=== PATIENT | female | born 1960 | race Caucasian/White ===

== ENCOUNTER → 2017-12-24 06:45 | Day surgery (SDC) | payer BC ==
--- NOTE | 2017-12-21 09:20 | HP ---
HISTORY AND PHYSICAL: DATE OF OFFICE VISIT: 12/18/17 DATE OF SURGERY: 12/24/17 SURGEON: Cyndi De León MD * (DICTATED BY WILIAN GILL) PROCEDURE: Left knee arthroplasty with partial meniscectomy, possible chondroplasty, possible synovectomy CHIEF COMPLAINT: Left knee pain. HISTORY OF PRESENT ILLNESS: Ms. Esposito is a 57-year-old female with complaints of left knee pain and MRI confirms a meniscal tear. She has elected to proceed with surgery. PAST MEDICAL HISTORY: History of breast cancer. PAST SURGICAL HISTORY: Lumpectomy. CURRENT MEDICATIONS: 1. Anastrozole. 2. Meloxicam 15 mg daily. 3. Vitamin D. 4. Motrin as needed. ALLERGIES: None. FAMILY HISTORY: Cancer and stroke. SOCIAL HISTORY: She is a 57-year-old female. She lives with her . She does not smoke, use drugs. Uses occasional alcohol. REVIEW OF SYSTEMS: A complete 14 point review of systems was reviewed with the patient and it was positive for asthma, nausea and vomiting after anesthesia. She denies history of DVT, PE, hepatitis, HIV, or anesthesia problems. PHYSICAL EXAMINATION GENERAL: She is well developed, well nourished, in no acute distress. VITAL SIGNS: She stands 64 inches tall. Weighs 200 pounds. Her blood pressure 124/82, heart rate is 71. HEENT: Normocephalic, atraumatic. NECK: Supple. No palpable lymph nodes. PULMONARY: Lungs are clear to auscultation bilaterally. CARDIO: Regular rate and rhythm. Strong S1 and S2. ABDOMEN: Soft, nontender, nondistended. NEUROLOGIC: She is alert and oriented x3. MUSCULOSKELETAL: Left lower extremity, skin is intact. There are no open wounds or abrasions. There is a mild joint effusion. She has some tenderness over the medial joint line. She has positive Gavin's. Positive Apley's. Negative Patricia's. 2+ dorsalis pedis pulses. Intact sensation. Her lower extremity muscle group strengths are intact at 5/5. ASSESSMENT AND PLAN: Mrs. Esposito is a 57-year-old female with complaints of left knee pain and MRI confirms a meniscal tear. She has elected to proceed with a left knee arthroscopy with partial meniscectomy, possible chondroplasty, possible synovectomy. The surgery is scheduled for 12/24/[address] De León. Dr. De León discussed the risks and benefits of the surgery at today's visit and all of her questions were answered. She will follow up with Dr. De León 2 weeks after the surgery. WILIAN GILL [id number]/[facility] #: [id number] JAYLEN
[~2017-12-24 06:45] MED LIST: Buffered Lidocaine 0.9% SYRIN* 5 ML/SYR SYRINGE INTRADERM ONE; Bupivacaine 0.5% SDV PF* 30ML VIAL ONE; Dexamethasone IV* 4 MG/ML 1 ML (4 MG) IV SLOW PU ONE; Dexamethasone IV* 4 MG/ML 1 ML (4 MG) ONE; DiMENhydriNATE IV* 50 MG/ML VIAL IV PUSH PRN; EPHEDrine (Pressors)* 50 MG/ML VIAL ONE; EPINEPHRINE 1 MG/ML 1 ML VIAL ONE; Famotidine IV* 10 MG/ML 2 ML (20 mg) IV ONE; Famotidine IV* 10 MG/ML 2 ML (20 mg) ONE; Ketorolac INJ* 30 MG/ML 1 ML VIAL ONE; Lidocaine 2% PF * 5 ML VIAL ONE; Midazolam* 1 MG/ML 5 ML VIAL (5 MG) ONE; Naloxone* 0.4 MG/ML 1 ML VIAL IV PRN; Ondansetron INJ* 2 MG/ML VIAL IV PRN; Ondansetron INJ* 2 MG/ML VIAL ONE; Phenylephrine INJ* 10 MG/ML 1 ML VIAL (10 MG) ONE; Propofol* 10 MG/ML 20 ML BTL IV PUSH ONE; Scopolamine 1.5 mg* PATCH TRANSDERM PRN; ceFAZolin 2 GM in NS PREMIX(*) 2 GM/100 ML BAG IVPB ONE; fentaNYL* 50 MCG/ML 2 ML VIAL (100 MCG VIAL) IV PRN; fentaNYL* 50 MCG/ML 5 ML VIAL (250 MCG VIAL) ONE; methylPREDNISolone ACETATE 80* 80 MG/ML 1 ML VIAL ONE; oxyCODONE/Acetamin 5/325 MG* TAB ONE; oxyCODONE/Acetamin 5/325 MG* TAB PO PRN
[2017-12-24 10:04] VITALS: BP 140/83
--- NOTE | 2017-12-25 07:44 | OP ---
DATE OF OPERATION: 12/24/17 - [facility] DATE OF : 64 ATTENDING SURGEON: Cyndi De León MD FILM PROCESSING SUPERVISOR: WILIAN Soto. Ms. Flower did help throughout the procedure with preparation of the leg, wound retraction, manipulation of the knee, and wound closure. ANESTHESIOLOGIST: Dr. Jesus. ANESTHESIA: General. PRE-OP DIAGNOSES: Left knee pain with medial meniscal tear. POST-OP DIAGNOSES: Left knee pain, medial meniscal tear, gbfggcij-za-ddxazy degenerative osteoarthritis in the medial and patellofemoral compartment. OPERATIVE PROCEDURE: Left knee arthroscopy with partial medial meniscectomy and patellofemoral chondroplasty. BRIEF HISTORY/INDICATION: Ms. Esposito is a 57-year-old female who injured her knee when dancing at wedding. She twisted the knee and had 2 months of pain with swelling and mechanical symptoms. MRI confirmed medial meniscal tear. She failed conservative treatment and due to continued pain, wished to proceed with left knee arthroscopy. Informed consent was obtained from the patient. She understood the risk of surgery included, but were not limited to, bleeding, infection, damage to nearby structures, continued pain, need for further surgery , progression of arthritis, stroke, heart attack, blood clot, and . She wished to proceed. INTRAOPERATIVE FINDINGS: Intraoperatively, the patient was noted to have a small radial tear in the anterior part of the medial meniscus involving the right red zone. She had a radial tear in the posterior horn of the medial meniscus in the red white zone. She was noted to have grade 3 and 4 Outerbridge cartilage changes involving the medial and patellofemoral compartment. The majority of the medial femoral condyle had exposed subchondral bone. Patellofemoral compartment showed cartilage fissuring and flapping along the medial and lateral patellar facet. This was grade 3 and 4 Outerbridge changes as well. ESTIMATED BLOOD LOSS: Less than 25 cc. COMPLICATIONS: None. SPECIMENS: None. DESCRIPTION OF PROCEDURE: Ms. Esposito was identified in the preanesthesia unit. Her left lower extremity was marked as the correct operative side. Informed consent was signed and placed in the chart. The patient was taken to the operating room and placed under general anesthesia. The left lower extremity was prepped and draped in usual sterile fashion. Preop timeout was made to correctly identify the patient's side and site. Appropriate perioperative antibiotics were given within 1 hour of incision. A standard 0.5 cm anterolateral portal incision was made with a #10 blade and carried down to the capsule. A trocar was introduced into the knee joint. As soon as the light and water sources were turned on, there was immediate visualization of suprapatellar pouch. A tour of the knee joint was performed. Suprapatellar pouch had no obvious abnormalities. Patellofemoral compartment showed cartilage fraying and flapping along the medial and lateral patellar facet. This was 3 and 4 Outerbridge cartilage changes. Medial gutters showed no loose body or plica. The medial compartment showed a posterior horn tear, which is the radial tear as well as the radial tear with some displacement into joint along the anterior medial meniscus. Medial femoral condyle had exposed subchondral bone along the majority of weightbearing surface, which is grade 3 and 4 Outerbridge cartilage changes. ACL and PCL appeared to be intact. The knee was placed in a wzgvah-sr-jufs position. There were minimal degenerative changes in the lateral compartment. No obvious lateral meniscal tear. Lateral gutter showed no loose body or plica. Under direct visualization, a medial portal incision was made with a #10 blade. Probe was introduced and a second tour of the knee joint was performed. No additional findings were noted. Shaver and radiofrequency ablation wand were used to remove small amount of inflammatory tissue from the anterior joint line. This improved visualization. Radiofrequency ablation wand was used to smooth any cartilage flapping along the patellofemoral joint. This was done in a conservative fashion. Next, the shaver and straighter biter were used to perform partial medial meniscectomy in the red white zone. Radial tears along the anterior medial meniscus and posterior horn were excised. Smooth border was obtained. Further probing of the medial meniscus showed no additional tearing. Radiofrequency ablation wand was used to further smooth the edge of meniscus. The knee was copiously irrigated with sterile saline. All instruments were removed. Incisions were closed using interrupted 3-0 nylon suture. Intraarticular injection of 80 mg Depo-Medrol and 6 cc 0.25% Marcaine was placed in the knee joint. The patient's incisions were covered with Xeroform, 4x4s, and Webril. Jony wrap and cold pack were placed over this. The patient's anesthesia was reversed without difficulty. She was taken to the PACU in stable condition. Intended weightbearing will be weightbearing as tolerated. Intended DVT prophylaxis will be Coumadin with aspirin. [id number]/[facility] #: [id number] [facility]
== END | disposition home or self-care (01) ==
LOC: OR 06:45
PROVIDERS: ATTEND Orthopaedic Surgery Adult Reconstructive Orthopaedic Surgery
DX: S83.242A Other tear of medial meniscus, current injury, left knee, initial encounter (principal); M17.12 Unilateral primary osteoarthritis, left knee; Z85.3 Personal history of malignant neoplasm of breast; E66.9 Obesity, unspecified; X58.XXXA Exposure to other specified factors, initial encounter; Y92.9 Unspecified place or not applicable
CPT/HCPCS: A9270-GY; J0690; J1040; J1100; J1885; J2250; J2405; J2704; J3010

== ENCOUNTER 2018-10-05 05:36 | Day surgery (SDC) | payer BC ==
--- NOTE | 2018-10-04 14:05 | HP ---
AMENDED REPORT NOW INCLUDES DESIGNATED COSIGNER HISTORY AND PHYSICAL: DATE OF SURGERY: 10/05/18 DATE OF OFFICE VISIT: 10/04/18 ATTENDING SURGEON: Dr. Cyndi De León.* (DICTATED BY WILIAN NIEVES) PROCEDURE: Right knee arthroscopy, partial meniscectomy, possible synovectomy, possible chondroplasty, and possible plica excision. CHIEF COMPLAINT: Right knee pain. HISTORY OF PRESENT ILLNESS: Ms. Esposito is a 58-year-old female who reported with 3 months of right knee pain. She has catching and clicking along her medial joint line. Her pain is increased with activity and twisting and deep bending. She has increased pain with driving, prolonged standing, and stair climbing. She has tried anti-inflammatories, activity modifications, compression , and rest without relief of any pain. She had an MRI done recently showing a right medial meniscal tear. PAST MEDICAL HISTORY: Osteoarthritis and asthma. PAST SURGICAL HISTORY: Right breast lumpectomy in 2017, left knee arthroscopy in 2018. MEDICATIONS: 1. Anastrozole 1 mg p.o. once daily. 2. Vitamin D p.o. daily. 3. Motrin p.o. p.r.n. for pain. 4. Aleve p.o. p.r.n. for pain. ALLERGIES: No known drug allergies. FAMILY HISTORY: Positive for cancer and hypertension. SOCIAL HISTORY: She works in [employer]. She lives at home with her . She denies tobacco use or recreational drug use. She has about 10 alcoholic drinks per week. REVIEW OF SYSTEMS: General: Negative for fevers, chills, night sweats, unexplained weight loss or gain. Positive for nausea after anesthesia. HEENT: Negative for headache, lightheadedness, syncopal episodes, visual changes. Integumentary: Negative for abrasions, lesions, open wounds. Cardiothoracic: Negative for hypertension, chest pain, palpitations, edema. Respiratory: Positive for chronic cough. Negative for shortness breath with exertion or wheezing. GI: Negative for nausea, vomiting, diarrhea, constipation, or GERD symptoms. : Negative for nocturia, urinary frequency, urgency, history of UTIs, kidney problems. Musculoskeletal: Positive for right knee pain. Negative for chronic or intermittent back pain or history of fractures. Neurologic: Negative for paresthesia, numbness, history of seizure, stroke, poor balance. Negative for anxiety, depression. Endocrine: Negative for diabetes, thyroid issues. Hematologic: Positive for easy bruising. Negative for anemia, bleeding disorders, history of DVT. ID: Negative for history of MRSA, hep C, or HIV. PHYSICAL EXAMINATION GENERAL: The patient is an overweight female, in no apparent distress, alert and oriented x3, pleasant mood, and appropriate affect. Balance is normal. Coordination is normal. Gait is slightly antalgic favoring the right knee. She takes slow shortened steps. VITAL SIGNS: Height 64 inches, weight 200 pounds. Pulse 82, temperature 97.5, O2 sats 98. BMI is 34.3. HEENT: Normocephalic, atraumatic. PERRLA. Extraocular movements intact. Throat is clear. NECK: Supple. No palpable lymph nodes. PULMONARY: Lungs are clear to auscultation bilaterally. No wheezes, rales, or rhonchi. CARDIO: Regular rate and rhythm. S1 and S2 normal. No murmurs, rubs, or gallops. No edema. ABDOMEN: Positive bowel sounds, soft and nontender. MUSCULOSKELETAL: Right lower extremity: The patient's skin is intact. No abrasions or open wounds. No palpable masses or lymph nodes. Moderate effusion at the knee joint. Tenderness along the medial joint line. Positive Apley's and Gavin's. She has 0 to 130 degrees of flexion at the knee. No varus or valgus instability. Distally, no edema, varicosities, or hyperreflexia. She has 5/5 ankle dorsiflexion and plantarflexion strength. Full sensation to light touch in all nerve distributions and 2+ palpable DP pulse. NEUROLOGIC: A and O x3. Cranial nerves II through XII intact. Sensation to light touch is intact. DIAGNOSTIC STUDIES: Multiple x-ray views of the patient's right knee show mild to moderate degenerative changes, no obvious fracture dislocation. MRI shows evidence of right knee medial meniscal tear. IMPRESSION: Right knee medial meniscal tear. PLAN: The patient is scheduled to undergo a right knee arthroscopy, partial meniscectomy with possible synovectomy, possible chondroplasty, and possible plica excision with Dr. De León on 10/05/18. She will return to the office 10 days postop for followup and suture removal, and a prescription for tramadol was e-scribed to the patient's pharmacy for postoperative pain management. WILIAN NIEVES [id number]/[facility] #: [id number] MTDBaldemar
[~2018-10-05 05:36] MED LIST changes: -Buffered Lidocaine 0.9% SYRIN* 5 ML/SYR SYRINGE INTRADERM ONE; +Buffered Lidocaine 1% SYRIN* 1 ML/SYRINGE INTRADERM ONE; -Bupivacaine 0.5% SDV PF* 30ML VIAL ONE; -Dexamethasone IV* 4 MG/ML 1 ML (4 MG) IV SLOW PU ONE; -Dexamethasone IV* 4 MG/ML 1 ML (4 MG) ONE; -EPHEDrine (Pressors)* 50 MG/ML VIAL ONE; -EPINEPHRINE 1 MG/ML 1 ML VIAL ONE; -Famotidine IV* 10 MG/ML 2 ML (20 mg) IV ONE; -Famotidine IV* 10 MG/ML 2 ML (20 mg) ONE; -Ketorolac INJ* 30 MG/ML 1 ML VIAL ONE; -Lidocaine 2% PF * 5 ML VIAL ONE; -Midazolam* 1 MG/ML 5 ML VIAL (5 MG) ONE; +Morphine 4 MG/ML VIAL (1 ml) 4 MG/ML VIAL IV PRN; -Ondansetron INJ* 2 MG/ML VIAL IV PRN; -Ondansetron INJ* 2 MG/ML VIAL ONE; +PROCHLORPERAZINE INJ 5 MG/ML 2 ML VIAL IV PRN; -Phenylephrine INJ* 10 MG/ML 1 ML VIAL (10 MG) ONE; -Propofol* 10 MG/ML 20 ML BTL IV PUSH ONE; -ceFAZolin 2 GM in NS PREMIX(*) 2 GM/100 ML BAG IVPB ONE; -fentaNYL* 50 MCG/ML 5 ML VIAL (250 MCG VIAL) ONE; -methylPREDNISolone ACETATE 80* 80 MG/ML 1 ML VIAL ONE; -oxyCODONE/Acetamin 5/325 MG* TAB ONE
[2018-10-05] MEDS ORDERED: Famotidine IV* 10 MG/ML 2 ML (20 mg) IV ONE (06:00)
[2018-10-05] MEDS ORDERED: Ondansetron ODT TAB* 4 MG PO ONE (06:00)
[2018-10-05] MEDS ORDERED: Dexamethasone TAB* 4 MG PO ONE (06:00)
[2018-10-05] MEDS ORDERED: Lactated Ringers 1000 ML Bag* 1,000 ML IV SCH (06:00)
[2018-10-05] MEDS ORDERED: Ondansetron ODT TAB* 4 MG ONE (06:06)
[2018-10-05] MEDS ORDERED: Buffered Lidocaine 1% SYRIN* 1 ML/SYRINGE INTRADERM ONE (06:07)
[2018-10-05] MEDS ORDERED: Famotidine IV* 10 MG/ML 2 ML (20 mg) ONE (06:07)
[2018-10-05] MEDS ORDERED: ceFAZolin 2 GM in NS PREMIX(*) 2 GM/100 ML BAG IVPB ONE (06:07)
[2018-10-05] MEDS ORDERED: Dexamethasone TAB* 4 MG ONE (06:07)
[2018-10-05] MEDS ORDERED: KETAMINE HCL* 50 MG/ML 10 ML VIAL ONE (06:38)
[2018-10-05] MEDS ORDERED: Midazolam* 1 MG/ML 5 ML VIAL (5 MG) ONE (06:38)
[2018-10-05] MEDS ORDERED: fentaNYL* 50 MCG/ML 2 ML VIAL (100 MCG VIAL) ONE ×2 (06:38→08:02)
[2018-10-05] MEDS ORDERED: Scopolamine 1.5 mg* PATCH ONE (06:39)
[2018-10-05] MEDS ORDERED: methylPREDNISolone ACETATE 80* 80 MG/ML 1 ML VIAL ONE (06:44)
[2018-10-05] MEDS ORDERED: ROPIVACAINE 5 MG/ML 30 ML BTL (0.5%) ONE (06:45)
[2018-10-05] MEDS ORDERED: EPINEPHRINE 1 MG/ML 1 ML VIAL ONE (06:45)
[2018-10-05] MEDS ORDERED: EPHEDrine (Pressors)* 50 MG/ML VIAL ONE (07:19)
[2018-10-05] MEDS ORDERED: Lidocaine 2% PF * 5 ML VIAL ONE (07:19)
[2018-10-05] MEDS ORDERED: Ketorolac INJ* 30 MG/ML 1 ML VIAL ONE (07:19)
[2018-10-05] MEDS ORDERED: Propofol* 10 MG/ML 20 ML BTL ONE (07:19)
[2018-10-05] MEDS ORDERED: PROCHLORPERAZINE INJ 5 MG/ML 2 ML VIAL ONE (07:19)
[2018-10-05] MEDS ORDERED: oxyCODONE/Acetamin 5/325 MG* TAB ONE (08:03)
[2018-10-05 08:28] VITALS: BP 136/68
--- NOTE | 2018-10-06 09:30 | OP ---
DATE OF OPERATION: 10/05/18 [facility] DATE OF : 64. ATTENDING SURGEON: Cyndi De León MD. RECYCLER FORKLIFT DRIVER TRUCK DRIVER: WILIAN Gonzales. Mr. Flores did help throughout the procedure with preparation of the leg, wound retraction, manipulation of the knee, and wound closure. ANESTHESIOLOGIST: Dr. Weldon. ANESTHESIA: General. PRE-OP DIAGNOSES: Right knee medial meniscal tear, moderate osteoarthritis. POST-OP DIAGNOSES: Right knee medial meniscal tear, medial plica with impingement, severe medial and patellofemoral osteoarthritis. OPERATIVE PROCEDURE: Right knee arthroscopy with partial medial meniscectomy, medial plica excision, medial compartment chondroplasty, patellofemoral compartment chondroplasty. BRIEF HISTORY/INDICATION: Ms. Esposito is a 58-year-old female with three months of severe right knee pain and mechanical symptoms consistent with medial meniscus tear. MRI confirmed a medial meniscus tear. The patient understood she had some arthritic changes, but did wish to proceed with arthroscopy. Informed consent was obtained from the patient. She understood the risks of surgery included, but were not limited to, bleeding, infection, damage to nearby structures, continued pain, need for further surgery, intraoperative complications, re-tear of the meniscus, progression of arthritis, stroke, heart attack, blood clot, , and anesthesia complications. She wished to proceed. INTRAOPERATIVE FINDINGS: Intraoperatively, the patient was noted to have a linear-type tear along the posterior border of the medial meniscus. This was in the white-red zone. She unfortunately had exposed subchondral bone with cartilage flapping along the medial femoral condyle and along the medial and lateral patellar facet. These were grade 3 and 4 Outerbridge cartilage changes in both the medial and patellofemoral compartment. She had a large medial plica that did impinge along the patellofemoral joint with range of motion. ESTIMATED BLOOD LOSS: Less than 25 cc. SPECIMENS: None. COMPLICATIONS: None. DESCRIPTION OF PROCEDURE: Ms. Esposito was identified in the preanesthesia unit. Her right lower extremity was marked as the correct operative side. Informed consent was signed and placed in the chart. The patient was taken to the operating room and placed under anesthesia without complications. Her right lower extremity was prepped and draped in usual sterile fashion. Preop timeout was made to correctly identify the patient, side and site. Appropriate perioperative antibiotics were given within 1 hour of incision. A standard anterolateral portal incision was made with a #15 blade and carried down to the capsule. A trocar was introduced. The light and water sources were turned on and there was immediate visualization of the suprapatellar pouch. A tour of the knee joint was performed. Suprapatellar pouch showed no obvious abnormalities. Patellofemoral compartment showed exposed subchondral bone and cartilage fissuring/flapping along the medial and lateral patellar facet. Also exposed subchondral bone along the trochlear groove of the femur. Medial gutters showed a large plica, which did impinge with range of motion along the patellofemoral compartment. There was no loose body. The medial compartment showed a posterior medial meniscal tear with some displacement anteriorly. There was exposed subchondral bone and cartilage flapping along the medial femoral condyle in the weightbearing surface. ACL and PCL appeared to be intact. The knee was placed in a keceua-my-coci position. There were minimal degenerative changes in the lateral compartment. No obvious tear of the lateral meniscus. Under direct visualization, a medial portal incision was made. A probe was introduced and a second tour of the knee joint was performed. No additional findings were noted. Shaver and radiofrequency ablation wand were used to conservatively excise the medial plica. There was no further impingement with range of motion. Next, radiofrequency ablation wand was used to smooth any cartilage flapping and fissuring along the medial femoral condyle. Radio- frequency ablation wand was then used to smooth any cartilage flapping or fissuring along the patella. The straight biter and shaver were used to perform partial medial meniscectomy. The medial meniscal tear was carefully excised in the red-white zone. A smooth border of the medial meniscus was obtained. Further probing of the medial meniscus showed no additional tears. The knee was copiously irrigated with sterile saline. All instruments were removed. Incisions were closed using 3-0 nylon suture. Intraarticular injection of 80 mg Depo-Medrol and 6 cc 0.25% Marcaine was placed in the knee joint. The patient's incisions were covered with Xeroform, 4x4s, and Webril. Cold pack and Jony wrap were placed over this. The patient's anesthesia was reversed without difficulty. She was taken to the PACU in stable condition. Intended weightbearing will be weightbearing as tolerated. Intended DVT prophylaxis will be aspirin. She will follow up in 2 weeks' time for suture removal. [id number]/[facility] #: [id number] JAYLEN
[2018-10-08] MEDS ORDERED: Scopolamine PATCH Remove* 1 NOTE MISC PATCH OFF ONE (05:09)
== END 2018-10-05 09:05 | disposition home or self-care (01) ==
LOC: OR 05:36
PROVIDERS: ATTEND Orthopaedic Surgery Adult Reconstructive Orthopaedic Surgery
DX: S83.241A Other tear of medial meniscus, current injury, right knee, initial encounter (principal); M67.51 Plica syndrome, right knee; M17.11 Unilateral primary osteoarthritis, right knee; M25.861 Other specified joint disorders, right knee; X58.XXXA Exposure to other specified factors, initial encounter; Y92.9 Unspecified place or not applicable; M19.90 Unspecified osteoarthritis, unspecified site; J45.909 Unspecified asthma, uncomplicated
CPT/HCPCS: A9270-GY; J0690; J0780; J1040; J1885; J2250; J2704; J2795; J3010; J8540

== ENCOUNTER 2019-02-08 07:48 | Day surgery (SDC) | payer BC ==
--- NOTE | 2019-01-30 12:51 | HP ---
PREOPERATIVE HISTORY AND PHYSICAL: DATE OF ADMISSION/SURGERY: 02/08/19 DATE OF OFFICE VISIT/ENCOUNTER: 01/19/19 ATTENDING SURGEON: Lily Parish MD * (DICTATED BY WILIAN CASILLAS) PROCEDURE: Left wrist carpal tunnel release. HISTORY OF PRESENT ILLNESS: This is a 58-year-old female with complaints of numbness and tingling in her left hand. This has been ongoing for many many years. It has gradually gotten considerably worse to the point where she is having trouble sleeping at night now. She often sleeps with her arm hanging down. The symptoms are in the index, middle and ring fingers. She is not complaining of any neck pain. She had a carpal tunnel release performed on the right about 20 years ago and had good results with that surgery. She is now interested in pursuing surgical intervention for her left wrist carpal tunnel syndrome. PAST MEDICAL HISTORY: 1. Asthma. 2. History of breast cancer, treated with radiation. PAST SURGICAL HISTORY: 1. Breast lumpectomy. 2. Bilateral knee arthroscopy. 3. Tonsillectomy. CURRENT MEDICATIONS: 1. Exemestane 25 mg daily. 2. Vitamin D daily. 3. Advil p.r.n. ALLERGIES: No known drug allergies. FAMILY MEDICAL HISTORY: Hypertension and cancer. SOCIAL HISTORY: She is retired from [employer]. She worked in [employer]. She denies tobacco use and recreational drug use. She drinks alcohol on regular occasion approximately 2 glasses of wine 5 nights a week. REVIEW OF SYSTEMS: Negative for general, cephalic, cardiovascular, respiratory , GI, , endocrine, other musculoskeletal, integumentary, neurologic, and hematologic symptoms. Infectious Disease: Negative for MRSA, hepatitis C, HIV. PHYSICAL EXAMINATION GENERAL: A well-developed, well-nourished 58-year-old female, in no acute distress. VITAL SIGNS: Height 5 feet 4 inches, weight 209 pounds. Pulse rate 76, BP 126/ 78. HEENT: Normocephalic, atraumatic. Pupils are equal, round, and reactive to light and accommodation. Extraocular movements are intact. Throat is clear. NECK: Supple. No palpable lymph nodes. PULMONARY: Lungs are clear to auscultation bilaterally. No wheezes, rales, or rhonchi. CARDIOVASCULAR: Regular rate and rhythm. S1, S2. No murmurs, rubs, or gallops. No edema. ABDOMEN: Positive bowel sounds. Soft, nontender. NEUROLOGICAL: Alert and oriented x3. Cranial nerves II through XII are intact. Sensation is intact to light touch. MUSCULOSKELETAL: On exam of her left hand, she has positive median nerve compression test and a positive Tinel's sign of the median nerve at the wrist. She can flex and extend her fingers. She has a little bit of weakness with thumb abduction, but no thenar atrophy. IMPRESSION: Left wrist carpal tunnel syndrome. PLAN: The patient is scheduled to undergo a left wrist carpal tunnel release with Dr. Parish on 02/08/19. She will return to the office 10 days postop for followup and suture removal. A prescription for tramadol was e-scribed to the patient's pharmacy for postoperative pain management. WILIAN CASILLAS [id number]/[facility] #: [id number] JAYLEN
[~2019-02-08 07:48] MED LIST changes: -DiMENhydriNATE IV* 50 MG/ML VIAL IV PUSH PRN; +Famotidine IV* 10 MG/ML 2 ML (20 mg) IV ONE; +Lactated Ringers 1000 ML Bag* 1,000 ML IV SCH; -Morphine 4 MG/ML VIAL (1 ml) 4 MG/ML VIAL IV PRN; -Naloxone* 0.4 MG/ML 1 ML VIAL IV PRN; -PROCHLORPERAZINE INJ 5 MG/ML 2 ML VIAL IV PRN; -Scopolamine 1.5 mg* PATCH TRANSDERM PRN; -fentaNYL* 50 MCG/ML 2 ML VIAL (100 MCG VIAL) IV PRN; -oxyCODONE/Acetamin 5/325 MG* TAB PO PRN
[2019-02-08] MEDS ORDERED: Famotidine IV* 10 MG/ML 2 ML (20 mg) ONE (07:55)
[2019-02-08] MEDS ORDERED: Naloxone* 0.4 MG/ML 1 ML VIAL IV PRN (08:10)
[2019-02-08] MEDS ORDERED: Acetaminophen TAB* 325 MG PO PRN (08:10)
[2019-02-08] MEDS ORDERED: Midazolam* 1 MG/ML 5 ML VIAL (5 MG) ONE (08:17)
[2019-02-08] MEDS ORDERED: Lidocaine 2% PF * 5 ML VIAL ONE (08:34)
[2019-02-08] MEDS ORDERED: Ondansetron INJ* 2 MG/ML VIAL ONE (08:34)
[2019-02-08] MEDS ORDERED: Ketorolac INJ* 30 MG/ML 1 ML VIAL ONE (08:34)
[2019-02-08] MEDS ORDERED: Propofol* 10 MG/ML 20 ML BTL ONE (08:34)
[2019-02-08] MEDS ORDERED: Dexamethasone IV* 4 MG/ML 1 ML (4 MG) ONE (08:37)
[2019-02-08] MEDS ORDERED: DiMENhydriNATE IV* 50 MG/ML VIAL ONE (08:37)
[2019-02-08] MEDS ORDERED: Lidocaine 1% INJ* 10 MG/ML 30 ML SDV ONE (08:44)
[2019-02-08 09:35] VITALS: BP 139/94
--- NOTE | 2019-02-08 11:52 | OP ---
DATE OF OPERATION: 02/08/19 [facility] DATE OF : 64 SURGEON: Lily Parish MD [employer]OP GRAIN OR LIVESTOCK FARM MANAGER: WILIAN Wilcox ANESTHESIA: Local MAC. PRE-OP DIAGNOSIS: Left carpal tunnel syndrome. POST-OP DIAGNOSIS: Left carpal tunnel syndrome. OPERATIVE PROCEDURE: Left carpal tunnel release. ESTIMATED BLOOD LOSS: Zero. TOURNIQUET TIME: About 10 minutes. INDICATIONS FOR PROCEDURE: Zulma is a 58-year-old woman who has numbness and tingling in the median nerve distribution of her left hand for many years. She presents for left carpal tunnel release. DESCRIPTION OF PROCEDURE: The patient was brought to the operating room, was given a sedation anesthetic and a local infiltration of 10 cc of 1% plain lidocaine in the palm of her left hand. The skin of her left hand and forearm was prepped and draped in the usual sterile fashion. The hand and forearm were exsanguinated and the tourniquet elevated to 250 mmHg. A longitudinal incision was made in the palm in line with the ring finger. We dissected through the subcutaneous tissue down to the transverse carpal ligament. The ligament was divided sharply with the knife and then more proximally with the scissors. The nerve was dissected free from the surrounding tissue and there was an area of significant compression at the mid portion of the ligament. The wound was irrigated and the skin edges reapproximated with 4-0 nylon suture. The wound was dressed with Xeroform, 4x4, Webril, and an Jony wrap. The patient tolerated the procedure well and was brought to the recovery room in good condition. [id number]/[facility] #: [id number] [facility]ITAL[facility]ald[facility]
== END 2019-02-08 09:58 | disposition home or self-care (01) ==
LOC: OREAST 07:48
PROVIDERS: ATTEND Orthopaedic Surgery
PROC: 01N50ZZ Release Median Nerve, Open Approach (ICD-10-PCS; principal; 2019-02-08 09:00)
DX: G56.02 Carpal tunnel syndrome, left upper limb (principal); J45.909 Unspecified asthma, uncomplicated; I10 Essential (primary) hypertension; Z85.3 Personal history of malignant neoplasm of breast
CPT/HCPCS: J1100; J1240; J1885; J2250; J2405; J2704